=== PATIENT | female | born 1950 | race Caucasian/White ===

== ENCOUNTER → 2021-07-07 | Outpatient (CLI) | payer MEDICARE, OTHER ==
[~2021-07-07] MED LIST: AMLO5 PO; ASCO500 PO; ASPI81CH PO; ESOM20 PO; FERR325 PO; FURO40 PO; HYDR10 PO; LISI20 PO; Micro-K10 MEQ PO; Norco 5-325 Ta1 EACH PO; PANT20 PO; TOCO400 PO; Xanax0.5 MG PO; Zofran8 MG PO
== END | disposition home or self-care (01) ==
LOC: LAB SHORT 12:39
DX: D22.4 Melanocytic nevi of scalp and neck (principal)
CPT/HCPCS: 88305

== ENCOUNTER 2023-09-17 14:08 | Emergency (ER) | payer MEDICARE, OTHER ==
[~2023-09-17] VITALS: Ht 165.1 cm; Wt 83.9 kg
[2023-09-17 14:34] VITALS: BP 200/104
[2023-09-17 15:12] LABS: BASOPHILS ABSOLUTE AUTO 0.07 K/mm3 (0.00-0.23); BASOPHILS PERCENT AUTO 1 % (0-2); EOSINOPHILS PERCENT AUTO 2 % (0-6); Hematocrit 38.6 % (33.0-51.0); Hemoglobin 12.6 g/dL (11.5-16.0); IMMATURE GRAN ABSOLUTE AUTO 0.03 K/mm3 (0.00-0.10); IMMATURE GRAN PERCENT AUTO 0 % (0-1); LYMPHOCYTES ABSOLUTE AUTO 1.11 K/mm3 (0.84-5.20); LYMPHOCYTES PERCENT AUTO 12 % (21-46); MONOCYTES ABSOLUTE AUTO 0.57 K/mm3 (0.16-1.47); MONOCYTES PERCENT AUTO 6 % (4-13); Mean Corpuscular HGB 29.9 pg (26.0-34.0); Mean Corpuscular HGB Conc 32.6 g/dL (31.5-36.5); Mean Corpuscular Volume 92 fL (80-100); Mean Platelet Volume 9.8 fL (9.1-12.4); NEUTROPHILS ABSOLUTE AUTO 7.39 K/mm3 (1.96-9.15); NEUTROPHILS PERCENT AUTO 79 % (41-73); Platelet Count 204 K/mm3 (150-400); RDW Coefficient Variation 14.5 % (11.7-14.2); RDW Standard Deviation 48.7 fL (35.1-46.3); Red Blood Cell Count 4.22 M/mm3 (3.80-5.20); White Blood Cell Count 9.37 K/mm3 (4.00-11.30)
[2023-09-17 15:33] LABS: Albumin, Blood 3.3 g/dL (3.4-5.0); Albumin/Globulin Ratio 0.8 (0.8-1.8); Bilirubin, Total 0.4 mg/dL (0.1-1.0); Bun/Creatinine Ratio 31.2 (12.0-20.0); Calcium, Blood 8.8 mg/dL (8.5-10.1); Creatinine, Blood 0.93 mg/dL (0.40-1.00); Globulin, Blood 3.9 g/dL (2.2-4.0); Potassium, Blood 4.1 mmol/L (3.5-5.5); Total Protein, Blood 7.2 g/dL (6.4-8.2)
[2023-09-17 17:11] LABS: Influenza A, PCR NEGATIVE (NEGATIVE); Influenza B, PCR NEGATIVE (NEGATIVE); Resp Syncytial Virus, PCR NEGATIVE (NEGATIVE); SARS-Cov-2 (COVID-19) PCR, MMC NEGATIVE (NEGATIVE)
== END 2023-09-17 18:45 | disposition home or self-care (01) ==
LOC: ER 14:08
PROVIDERS: Physician Assistant; Student in an Organized Health Care Education/Training Program
DX: R42 Dizziness and giddiness (principal); I10 Essential (primary) hypertension; Z11.52 Encounter for screening for COVID-19; Z91.048 Other nonmedicinal substance allergy status; Z88.1 Allergy status to other antibiotic agents; Z88.2 Allergy status to sulfonamides; Z79.899 Other long term (current) drug therapy; Z87.891 Personal history of nicotine dependence
CPT/HCPCS: 0241U; 80053; 84484; 85025; 93005; 93010; 99284-25

== ENCOUNTER 2025-01-28 06:05 | Day surgery (SDC) | payer MEDICARE, OTHER ==
[~2025-01-28] VITALS: Ht 170.2 cm; Wt 91.2 kg
[2025-01-28] VITALS (19 sets, daily range): BP systolic 136–191; BP diastolic 78–111
[~2025-01-28 06:05] MED LIST changes: +ALLO300 PO; +Fluocinonide15 GM
[2025-01-28] MEDS ORDERED: CeFAZolin Sodium 2,000 MG in NS 100 ML IV SCH ×3 (06:15→16:00)
[2025-01-28] MEDS ORDERED: Chlorhexidine Mouth Care 15 ML UDC MT SCH (06:15)
[2025-01-28] MEDS ORDERED: Ropivacaine 0.5% HCl/Pf 123.125 MG,EPINEPHrine HCL 0.25 MG,Ketorolac Tromethamine 15 MG... INFIL SCH (06:15)
[2025-01-28] MEDS ORDERED: OxyCODONE HCL 10 MG TABCR PO SCH (06:15)
[2025-01-28] MEDS ORDERED: Vancomycin HCL 1,000 MG in NS 250 ML IV SCH (06:15)
[2025-01-28] MEDS ORDERED: Lactated Ringer's 1,000 ML IV SCH ×2 (06:15→10:25)
[2025-01-28] MEDS ORDERED: Acetaminophen 500 MG Tab PO SCH ×2 (06:15→16:00)
[2025-01-28] MEDS ORDERED: Tranexamic Acid 100 ML IV SCH (06:40)
[2025-01-28] MEDS ORDERED: FentaNYL Citrate 50 MCG/ML 2 ML Injection ONE (07:18)
[2025-01-28] MEDS ORDERED: Midazolam HCl 1MG / ML 2ML Vial ONE (07:18)
[2025-01-28] MEDS ORDERED: propofoL 50 ML IV ONE (07:22)
[2025-01-28] MEDS ORDERED: Lidocaine HCl 2% Jelly 120MG/6ML SYR (20MG PER ML) ONE (08:13)
[2025-01-28] MEDS ORDERED: HYDROmorphone HCl/Pf 1MG SYR ONE (08:20)
[2025-01-28] MEDS ORDERED: Labetalol HCL 5 MG/ML 4ML Injection (Single Dose) ONE (08:33)
[2025-01-28] MEDS ORDERED: propofoL 20 ML IV ONE (09:10)
[2025-01-28] MEDS ORDERED: Phenylephrine HCl 100 MCG/ML-NS 10MLSYR (1MG/10ML) ONE (09:11)
[2025-01-28] MEDS ORDERED: Dexamethasone Sod Phos 10 MG/ML 1ML VIAL ONE (09:18)
--- NOTE | 2025-01-28 09:55 | NUR ---
01/28/25 0955 Truong Kapoor WHEN BOVIE PAD REMOVED AT END OF CASE THERE WAS A REDDISH PURPLE SANJEEV AROUND WHERE PAD ADHESIVE WAS. NOTIFANDRE
[2025-01-28] MEDS ORDERED: Albuterol 2.5 MG/3 ML VIAL ONE (10:14)
[2025-01-28] MEDS ORDERED: HYDROmorphone HCl/Pf 1MG SYR IV PRN (10:25)
[2025-01-28] MEDS ORDERED: OxyCODONE HCL 5 MG TAB PO PRN ×2 (10:25)
[2025-01-28] MEDS ORDERED: DiphenhydrAMINE HCL 25 MG Cap PO PRN (10:25)
[2025-01-28] MEDS ORDERED: Metoclopramide HCl 5MG / ML 2ML Vial IV PRN (10:25)
[2025-01-28] MEDS ORDERED: Promethazine HCl 25 MG Tab PO PRN (10:25)
[2025-01-28] MEDS ORDERED: Ondansetron HCl 2 MG / ML 2ML Vial IV PRN (10:25)
--- NOTE | 2025-01-28 10:43 | NUR ---
PT PROVIDED INCENTIVE SPIROMETER AND EDUCATED ON USE, PT DEMONSTRATES UNDERSTANDING
[2025-01-28] MEDS ORDERED: Ketorolac Tromethamine 15mg Vial IV SCH (12:00)
[2025-01-28] MEDS ORDERED: Furosemide 40 MG Tab PO SCH (15:20)
--- NOTE | 2025-01-28 16:43 | NUR ---
POST OP: REPORT RECEIVED FROM PEDIATRIC NEUROLOGIST. PT TO UNIT AT ABOUT 1050. VSS, PT IS ORIENTED, AWAKENS TO VOICE AND FOLLOWS COMMANDS. SURGICAL SITE WNL, PT REPORTS FULL SENSATION IN LEGS. PT GIVEN CALL LIGHT AND INSTRUCTED TO CALL STAFF FOR HELP
--- NOTE | 2025-01-28 16:54 | NUR ---
SUMMARY: PT DOING OK POST OP. ABLE TO AMBULATE TO RECLINER WITH THERAPY. PT IS MOVING SLOW AND GETS NAUSEATED WITH MOVEMENT OR DRINKING ONE SIP OF WATER.
[2025-01-28] MEDS ORDERED: Docusate Sodium 100 MG Cap PO SCH (21:00)
--- NOTE | 2025-01-28 22:40 | NUR ---
ASSUMED CARE REPORT TAKEN FROM HOLLI CM TO ASSUME CARE OF PT. PT ASSISTED TO BEDSIDE COMMODE AND THEN BACK TO BED. SNACKS PROVIDED TO PT PER HER REQUEST. VITALS ARE STABLE. BED IN LOWEST POSITION, CALL LIGHT WITHIN REACH.
--- NOTE | 2025-01-28 22:49 | NUR ---
TRANSFER OF PRIMARY NURSE. REPORT GIVEN TO CIERRA WHITAKER RN TO ASSUME CARE OF PATIENT AT 2204.
--- NOTE | 2025-01-29 04:37 | NUR ---
SHIFT SUMMARY PT POD 0 R TKA. PT HAS BEEN UP AND AMBULATING. DENIES DIZZINESS WITH AMBULATION. PAIN HAS BEEN CONTROLLED WITH MEDS PER EMAR. PT VOIDING AND TOLERATING PO INTAKE. NO N/V SINCE THIS RN ASSUMED CARE. SURGICAL SITE WNL. DRESSING C/D/I. VITALS STABLE. PLAN IS FOR DISCHARGE TODAY. PLAN OF CARE UNCHANGED. BED IN LOWEST POSITION, CALL LIGHT WITHIN REACH.
[2025-01-29 04:49] VITALS: BP 126/72
[2025-01-29 04:51] LABS: BASOPHILS ABSOLUTE AUTO 0.01 K/mm3 (0.00-0.23); BASOPHILS PERCENT AUTO 0 % (0-2); EOSINOPHILS PERCENT AUTO 0 % (0-6); Hematocrit 32.4 % (33.0-51.0); Hemoglobin 10.4 g/dL (11.5-16.0); IMMATURE GRAN ABSOLUTE AUTO 0.06 K/mm3 (0.00-0.10); IMMATURE GRAN PERCENT AUTO 0 % (0-1); LYMPHOCYTES ABSOLUTE AUTO 0.46 K/mm3 (0.84-5.20); LYMPHOCYTES PERCENT AUTO 3 % (21-46); MONOCYTES ABSOLUTE AUTO 0.56 K/mm3 (0.16-1.47); MONOCYTES PERCENT AUTO 4 % (4-13); Mean Corpuscular HGB 29.5 pg (26.0-34.0); Mean Corpuscular HGB Conc 32.1 g/dL (31.5-36.5); Mean Corpuscular Volume 92 fL (80-100); Mean Platelet Volume 9.8 fL (9.1-12.4); NEUTROPHILS ABSOLUTE AUTO 12.96 K/mm3 (1.96-9.15); NEUTROPHILS PERCENT AUTO 92 % (41-73); Platelet Count 197 K/mm3 (150-400); RDW Coefficient Variation 14.1 % (11.7-14.2); RDW Standard Deviation 47.6 fL (35.1-46.3); Red Blood Cell Count 3.52 M/mm3 (3.80-5.20); White Blood Cell Count 14.05 K/mm3 (4.00-11.30)
[2025-01-29 05:21] LABS: Bun/Creatinine Ratio 27.7 (12.0-20.0); Calcium, Blood 8.5 mg/dL (8.5-10.1); Creatinine, Blood 1.3 mg/dL (0.40-1.00); Magnesium, Blood 2.2 mg/dL (1.6-2.4)
[2025-01-29 07:20] VITALS: BP 146/79
[2025-01-29] MEDS ORDERED: Rivaroxaban 10 MG Tab PO SCH (09:00)
[2025-01-29] MEDS ORDERED: Lisinopril 20 MG Tab PO SCH (09:00)
[2025-01-29] MEDS ORDERED: Potassium Chloride 10 Meq Tablet SA PO SCH (09:00)
[2025-01-29] MEDS ORDERED: Allopurinol 300 MG Tab PO SCH (09:00)
[2025-01-29] MEDS ORDERED: XARELTO10 M1 PO (09:05)
--- NOTE | 2025-01-29 09:25 | NUR ---
DISCHARGE SUMMARY: PATIENT ALERT AND ORIENTED X4 THROUGHOUT THE MORNING. DENIED NUMBNESS/TINGLING TO ALL EXTREMITIES. UP WITH PATTERNMAKER PLASTER AND WORKED WITH PHYSICAL THERAPY. PATIENT FOLLOWING PRECAUTIONS AND RECOMMENDATIONS. PATIENT STEADY WITH THE FWW AND MIN ASSIST. PATIENT PAIN CONTROLLED WITH SCHEDULED TYLENOL. PATIENT STABLE ON ROOM AIR. LUNG SOUNDS CLEAR THIS AM. PATIENT REPORTED UNDERSTANDING OF INCENTIVE SPIROMETER. SENT HOME WITH THE PATIENT. PATIENT'S VITALS STABLE WITH MAPS >65 AND SBP IN THE 140S. PATIENT DENIES CHEST PRESSURE OR DISCOMFORT. PATIENT VOIDING WITHOUT DIFFICULTY. PATIENT DENIED NAUSEA THIS AM. PATIENT CLEARED BY PT FOR DISCHARGE. DISCHARGE ORDERS IN PER DR. MENA. DISCHARE INSTRUCTIONS AND EDUCATION PROVIDED TO THE PATIENT AND PATIENT'S DAUGHTER. ALL QUESTIONS AND CONCERNS ADDRESSED. VERIFIED THAT PATIENT SHOULD DISCHARGE ON XARELTO AND THAT THE PATIENT HAD IT AT HOME ALREADY. PATIENT DISCHARGED IN WHEELCHAIR WITH PATTERNMAKER PLASTER AND PATIENT'S DAUGHTER. PATIENT STABLE AT TIME OF DISCHARGE.
== END 2025-01-29 10:00 | disposition home or self-care (01) ==
LOC: ORSCMMR 06:05 → ORD 07:30 → ORSCMMR 07:30 → SURS 10:18 → ORSCMMR 01-29 10:00
PROVIDERS: Orthopaedic Surgery
PROC: 0SRC0J9 Replacement of Right Knee Joint with Synthetic Substitute, Cemented, Open Approach (ICD-10-PCS; principal; 2025-01-28 07:30)
DX: M17.11 Unilateral primary osteoarthritis, right knee (principal); I10 Essential (primary) hypertension; Z79.899 Other long term (current) drug therapy
CPT/HCPCS: 36415; 73560-RT; 80048; 83735; 85025; 97116; 97161; 97530; A9270; C1713; C1776; J0171; J0690; J0735; J1100; J1171; J1885; J2250; J2371; J2405; J2704; J2765; J2795; J3010; J3370; J7050; J7120